=== PATIENT | female | born 1990 | race Two or more races ===

== ENCOUNTER 2019-05-22 11:40 | Emergency (ER) | payer MEDICAID ==
[~2019-05-22] VITALS: Ht 165.1 cm; Wt 74.8 kg
[2019-05-22] MEDS ORDERED: ONDANSETRON ODT 4 MG ONE (11:44)
--- NOTE | 2019-05-22 11:59 | NUR ---
Medicated per EMAR for active vomiting after 5 rights verified
[2019-05-22] MEDS ORDERED: ONDANSETRON ODT 4 MG PO ONE (12:00)
[2019-05-22] MEDS ORDERED: SODIUM CHLORIDE FLUSH 10ML SYR IVF ONE (13:00)
[2019-05-22] MEDS ORDERED: FAMOTIDINE 20 MG/2 ML IVPush ONE (13:00)
[2019-05-22] MEDS ORDERED: SODIUM CHLORIDE 0.9% 1,000ML IVBOLUS ONE ×2 (13:00→14:30)
[2019-05-22] MEDS ORDERED: ONDANSETRON 2MG/ML, 2ML IVPush ONE (13:00)
[2019-05-22] MEDS ORDERED: ONDANSETRON 2MG/ML, 2ML ONE (13:08)
[2019-05-22] MEDS ORDERED: FAMOTIDINE 20 MG/2 ML ONE (13:09)
[2019-05-22 13:13] LABS: BASOPHILS # (AUTO) 0.03 x10^3/uL (0-0.1); BASOPHILS % (AUTO) 0 % (0-1); EOSINOPHILS # (AUTO) 0.15 x10^3/uL (0-0.4); EOSINOPHILS % (AUTO) 2 % (1-7); LYMPHOCYTES # (AUTO) 1.67 x10^3/uL (1-3.4); LYMPHOCYTES % (AUTO) 18 % (22-44); MD NO; MEAN CORPUSCULAR HEMOGLOBIN 28.5 pg (27.0-34.8); MEAN CORPUSCULAR HGB CONC 33.3 g/dL (32.4-35.8); MEAN CORPUSCULAR VOLUME 85.7 fL (80-100); MEAN PLATELET VOLUME 7.6 fL (7.4-10.4); MONOCYTES # (AUTO) 0.35 x10^3/uL (0.2-0.8); MONOCYTES % (AUTO) 4 % (2-9); NEUTROPHILS # (AUTO) 7.17 x10^3/uL (1.8-6.8); NEUTROPHILS % (AUTO) 77 % (42-75); PLATELET COUNT 310 x10^3/uL (130-400); RED BLOOD COUNT 5.09 x10^6/uL (3.82-5.3); RED CELL DISTRIBUTION WIDTH 13.4 % (9.6-15.2)
[2019-05-22 13:23] LABS: ALANINE AMINOTRANSFERASE 29 U/L (12-78); ALBUMIN 3.8 g/dL (3.4-5.0); ANION GAP 9 mmol/L (5-15); CALCIUM 9.3 mg/dL (8.5-10.1); CHLORIDE 105 mmol/L (98-107); CREATININE 0.61 mg/dL (0.55-1.02)
[2019-05-22 13:40] LABS: ALKALINE PHOSPHATASE 88 U/L (45-117); BILIRUBIN,TOTAL 0.6 mg/dL (0.2-1.0); TOTAL PROTEIN 8.3 g/dL (6.4-8.2)
--- NOTE | 2019-05-22 15:27 | NUR ---
RE-EVAL. PT TOLERATING PO. ULTRASOUND ORDER ADDED.
--- NOTE | 2019-05-22 15:59 | NUR ---
TOLERATED PO CHALLENGE. AWAITING ULTRASOUND
--- NOTE | 2019-05-22 16:01 | NUR ---
OFF FLOOR TO ULTRASOUND
[2019-05-22 16:27] VITALS: BP 110/49
== END 2019-05-22 16:30 | disposition home or self-care (01) ==
LOC: ED 12:03
DX: O21.1 Hyperemesis gravidarum with metabolic disturbance (principal); Z3A.08 8 weeks gestation of pregnancy
CPT/HCPCS: 36415; 76801; 80053; 84702; 85025; 96361; 96374; 96375; 99284; J2405; J3490; J7030; Q0162

== ENCOUNTER 2019-06-10 18:02 | Inpatient (IN) | payer MEDICAID ==
[~2019-06-10] VITALS: Ht 152.4 cm; Wt 73.0 kg
[2019-06-10] MEDS ORDERED: DOCU-144 PO (18:23)
[2019-06-10] MEDS ORDERED: ONDA4TAB7 PO (18:23)
--- NOTE | 2019-06-10 18:26 | NUR ---
pt wheeled back to room, changed into gown, pt skin in WNL, warm and dry, FCS no SOB, RESP WNL, NAD, significant other at BS, call light within reach, lab at , WCTM.
[2019-06-10] MEDS ORDERED: SODIUM CHLORIDE FLUSH 10ML SYR IVF ONE (18:30)
[2019-06-10] MEDS ORDERED: DIPHENHYDRAMINE 50 MG/ML, 1ML IVPush ONE (18:30)
[2019-06-10] MEDS ORDERED: SODIUM CHLORIDE 0.9% 1,000ML IVBOLUS ONE (18:30)
[2019-06-10] MEDS ORDERED: DIPHENHYDRAMINE 50 MG/ML, 1ML ONE (18:50)
[2019-06-10 18:55] LABS: BASOPHILS # (AUTO) 0.02 x10^3/uL (0-0.1); BASOPHILS % (AUTO) 0 % (0-1); EOSINOPHILS # (AUTO) 0.14 x10^3/uL (0-0.4); EOSINOPHILS % (AUTO) 2 % (1-7); LYMPHOCYTES # (AUTO) 1.88 x10^3/uL (1-3.4); LYMPHOCYTES % (AUTO) 21 % (22-44); MD NO; MEAN CORPUSCULAR HEMOGLOBIN 28.8 pg (27.0-34.8); MEAN CORPUSCULAR HGB CONC 33.6 g/dL (32.4-35.8); MEAN CORPUSCULAR VOLUME 85.5 fL (80-100); MEAN PLATELET VOLUME 8.3 fL (7.4-10.4); MONOCYTES # (AUTO) 0.41 x10^3/uL (0.2-0.8); MONOCYTES % (AUTO) 5 % (2-9); NEUTROPHILS # (AUTO) 6.44 x10^3/uL (1.8-6.8); NEUTROPHILS % (AUTO) 72 % (42-75); PLATELET COUNT 254 x10^3/uL (130-400); RED BLOOD COUNT 5.26 x10^6/uL (3.82-5.3); RED CELL DISTRIBUTION WIDTH 13.3 % (9.6-15.2)
[2019-06-10 19:00] LABS: ALANINE AMINOTRANSFERASE 34 U/L (12-78); ALBUMIN 3.7 g/dL (3.4-5.0); ANION GAP 10 mmol/L (5-15); CALCIUM 9.1 mg/dL (8.5-10.1); CHLORIDE 100 mmol/L (98-107); CREATININE 0.66 mg/dL (0.55-1.02)
--- NOTE | 2019-06-10 19:00 | NUR ---
report given to Tiffanie ESTRADA, pt care transferred at this time.
[2019-06-10 19:02] LABS: ALKALINE PHOSPHATASE 85 U/L (45-117); BILIRUBIN,TOTAL 0.7 mg/dL (0.2-1.0); TOTAL PROTEIN 8.4 g/dL (6.4-8.2)
--- NOTE | 2019-06-10 19:24 | NUR ---
Report received from NATALIE Govea. This RN to assume care. Patient actively vomiting. IV established, meds admin per apr.
[2019-06-10] MEDS ORDERED: FAMOTIDINE 20 MG/2 ML ONE (19:28)
[2019-06-10] MEDS ORDERED: MAALOX/HYOSCYAMINE/LIDOCAINE 45 ML BTL ONE (19:28)
[2019-06-10] MEDS ORDERED: POTASSIUM CHLORIDE 20 MEQ TAB.ER.PRT PO ONE (20:30)
--- NOTE | 2019-06-10 20:38 | NUR ---
Patient completed PO challenge. Able to keep it down; still slightly nauseous.
[2019-06-10] MEDS ORDERED: PROMETHAZINE 25 MG/ML, 1ML IM ONE ×2 (22:30)
[2019-06-10] MEDS ORDERED: ACETAMINOPHEN 325 MG TABLET PO PRN (22:30)
[2019-06-10] MEDS ORDERED: BISACODYL 10 MG SUPP PR PRN (22:30)
[2019-06-10] MEDS ORDERED: POLYETHYLENE GLYCOL 17 GM PACKET PO PRN (22:30)
[2019-06-10] MEDS: SODIUM CHLORIDE 0.9% 1,000 ML IV SCH (22:30)
[2019-06-10] MEDS ORDERED: POTASSIUM CHLORIDE 20 MEQ TAB.ER.PRT ONE (22:37)
[2019-06-10] MEDS ORDERED: PROMETHAZINE 25 MG/ML, 1ML ONE (22:37)
--- NOTE | 2019-06-10 23:04 | NUR ---
Report given to NATALIE Chapa. Patient to be transferred to room 343.
[2019-06-10 23:20] VITALS: BP 106/74
[2019-06-10] MEDS: PYRIDOXINE 25MG TABLET PO SCH (23:40)
[2019-06-11 00:03] LABS: CULTURE INDICATED? YES; MICROSCOPIC INDICATED
[2019-06-11 01:02] VITALS: BP 92/63
[2019-06-11 05:06] LABS: BASOPHILS # (AUTO) 0.03 x10^3/uL (0-0.1); BASOPHILS % (AUTO) 1 % (0-1); EOSINOPHILS % (AUTO) 3 % (1-7); LYMPHOCYTES # (AUTO) 1.92 x10^3/uL (1-3.4); LYMPHOCYTES % (AUTO) 28 % (22-44); MD NO; MEAN CORPUSCULAR HEMOGLOBIN 28.5 pg (27.0-34.8); MEAN CORPUSCULAR HGB CONC 33.4 g/dL (32.4-35.8); MEAN CORPUSCULAR VOLUME 85.3 fL (80-100); MONOCYTES # (AUTO) 0.39 x10^3/uL (0.2-0.8); MONOCYTES % (AUTO) 6 % (2-9); NEUTROPHILS # (AUTO) 4.39 x10^3/uL (1.8-6.8); NEUTROPHILS % (AUTO) 63 % (42-75); PLATELET COUNT 215 x10^3/uL (130-400); RED BLOOD COUNT 4.57 x10^6/uL (3.82-5.3); RED CELL DISTRIBUTION WIDTH 13.1 % (9.6-15.2)
[2019-06-11 05:12] LABS: ANION GAP 8 mmol/L (5-15); CALCIUM 8.2 mg/dL (8.5-10.1); CHLORIDE 107 mmol/L (98-107)
[2019-06-11 05:23] LABS: CREATININE 0.44 mg/dL (0.55-1.02)
[2019-06-11 07:59] VITALS: BP 103/68
[2019-06-11] MEDS: SODIUM CHLORIDE 0.9% 1,000 ML IV SCH (09:37)
[2019-06-11] MEDS: PYRIDOXINE 25MG TABLET PO SCH ×3 (09:41→20:33)
[2019-06-11] MEDS: POTASSIUM CHLORIDE 20 MEQ TAB.ER.PRT PO SCH ×2 (09:41→16:08)
[2019-06-11] MEDS: SENNA/DOCUSATE TABLET PO SCH (09:41)
[2019-06-11] MEDS: PROMETHAZINE 25 MG/ML, 1ML IM PRN ×2 (10:47→16:53)
[2019-06-11] MEDS: ONDANSETRON 2MG/ML, 2ML IVPush PRN ×2 (13:44→20:33)
[2019-06-11 14:11] VITALS: BP 101/58
[2019-06-11] MEDS: D5%-0.45NACL+KCL 20MEQ 1,000 ML IV SCH ×2 (16:08→22:15)
[2019-06-11] MEDS: THIAMINE 100 MG in SODIUM CHLORIDE 0.9% 50 ML IV SCH (16:08)
[2019-06-11 19:09] VITALS: BP 98/63
[2019-06-12 00:48] VITALS: BP 92/57
[2019-06-12] MEDS: D5%-0.45NACL+KCL 20MEQ 1,000 ML IV SCH (04:44)
[2019-06-12 05:45] LABS: ALBUMIN 2.5 g/dL (3.4-5.0); ANION GAP 7 mmol/L (5-15); CALCIUM 7.8 mg/dL (8.5-10.1); CHLORIDE 111 mmol/L (98-107)
[2019-06-12 05:49] LABS: ALANINE AMINOTRANSFERASE 25 U/L (12-78); ALKALINE PHOSPHATASE 60 U/L (45-117); BILIRUBIN,TOTAL 0.7 mg/dL (0.2-1.0); TOTAL PROTEIN 5.9 g/dL (6.4-8.2)
[2019-06-12 06:09] LABS: BASOPHILS # (AUTO) 0.03 x10^3/uL (0-0.1); BASOPHILS % (AUTO) 1 % (0-1); EOSINOPHILS # (AUTO) 0.18 x10^3/uL (0-0.4); EOSINOPHILS % (AUTO) 4 % (1-7); LYMPHOCYTES # (AUTO) 1.48 x10^3/uL (1-3.4); LYMPHOCYTES % (AUTO) 33 % (22-44); MD NO; MEAN CORPUSCULAR HEMOGLOBIN 28.7 pg (27.0-34.8); MEAN CORPUSCULAR HGB CONC 33.4 g/dL (32.4-35.8); MEAN CORPUSCULAR VOLUME 85.9 fL (80-100); MONOCYTES # (AUTO) 0.29 x10^3/uL (0.2-0.8); MONOCYTES % (AUTO) 7 % (2-9); NEUTROPHILS # (AUTO) 2.45 x10^3/uL (1.8-6.8); NEUTROPHILS % (AUTO) 55 % (42-75); PLATELET COUNT 196 x10^3/uL (130-400); RED CELL DISTRIBUTION WIDTH 13.3 % (9.6-15.2)
[2019-06-12 07:14] VITALS: BP 91/58
[2019-06-12 07:34] LABS: FREE T4 (FREE THYROXINE) 1.42 ng/dL (0.76-1.46)
[2019-06-12] MEDS: SENNA/DOCUSATE TABLET PO SCH (07:52)
[2019-06-12] MEDS: POTASSIUM CHLORIDE 20 MEQ TAB.ER.PRT PO SCH (07:54)
[2019-06-12] MEDS: PYRIDOXINE 25MG TABLET PO SCH ×2 (07:54→16:32)
[2019-06-12] MEDS ORDERED: ONDANSETRON 4 MG TABLET PO PRN (09:30)
[2019-06-12] MEDS ORDERED: PROMETHAZINE 25MG TABLET PO PRN (09:30)
[2019-06-12 13:18] VITALS: BP 92/58
[2019-06-12] MEDS: THIAMINE 100 MG in SODIUM CHLORIDE 0.9% 50 ML IV SCH (15:52)
[2019-06-12] MEDS ORDERED: ONDA4TAB13 SL (16:00)
== END 2019-06-12 17:58 | disposition home or self-care (01) | DRG 833 ==
LOC: ED 20:58 → EDIP 22:23 → 3N 23:06
PROVIDERS: ATTEND Family Medicine
DX: O99.281 Endocrine, nutritional and metabolic diseases complicating pregnancy, first trimester (principal); O21.1 Hyperemesis gravidarum with metabolic disturbance; Z3A.21 21 weeks gestation of pregnancy; E86.0 Dehydration; Z91.013 Allergy to seafood; Z3A.10 10 weeks gestation of pregnancy
CPT/HCPCS: 36415; Q0169; 80048; 80053; 81001; 83605; 83690; 83735; 84100; 84439; 84443; 84481; 84702; 85025; 87086; 96360; 96372; 99285; G0378; J2405; J2550; J3411; Q0162; J1200; J3480; J7030

== ENCOUNTER 2019-06-24 15:01 | Emergency (ER) | payer MEDICAID ==
[~2019-06-24] VITALS: Ht 152.4 cm; Wt 61.8 kg
[~2019-06-24 15:01] MED LIST: DOCU-144 PO; ONDA4TAB13 SL; ONDA4TAB7 PO
[2019-06-24] MEDS ORDERED: SODIUM CHLORIDE FLUSH 10ML SYR IVF ONE (15:30)
[2019-06-24] MEDS ORDERED: ONDANSETRON 2MG/ML, 2ML IVPush ONE (15:30)
[2019-06-24] MEDS ORDERED: SODIUM CHLORIDE 0.9% 1,000ML IVBOLUS ONE (15:30)
[2019-06-24 15:51] LABS: BASOPHILS # (AUTO) 0.03 x10^3/uL (0-0.1); BASOPHILS % (AUTO) 0 % (0-1); EOSINOPHILS # (AUTO) 0.14 x10^3/uL (0-0.4); EOSINOPHILS % (AUTO) 2 % (1-7); LYMPHOCYTES # (AUTO) 1.63 x10^3/uL (1-3.4); LYMPHOCYTES % (AUTO) 21 % (22-44); MD NO; MEAN CORPUSCULAR HEMOGLOBIN 28.5 pg (27.0-34.8); MEAN CORPUSCULAR VOLUME 83.9 fL (80-100); MEAN PLATELET VOLUME 8.6 fL (7.4-10.4); MONOCYTES % (AUTO) 5 % (2-9); NEUTROPHILS # (AUTO) 5.46 x10^3/uL (1.8-6.8); NEUTROPHILS % (AUTO) 71 % (42-75); PLATELET COUNT 281 x10^3/uL (130-400); RED BLOOD COUNT 5.47 x10^6/uL (3.82-5.3); RED CELL DISTRIBUTION WIDTH 12.8 % (9.6-15.2)
[2019-06-24 15:59] LABS: ALBUMIN 3.7 g/dL (3.4-5.0); ANION GAP 8 mmol/L (5-15); CALCIUM 9.4 mg/dL (8.5-10.1); CHLORIDE 97 mmol/L (98-107)
[2019-06-24 16:02] LABS: ALANINE AMINOTRANSFERASE 34 U/L (12-78); ALKALINE PHOSPHATASE 87 U/L (45-117); BILIRUBIN,TOTAL 0.6 mg/dL (0.2-1.0); CREATININE 0.71 mg/dL (0.55-1.02); TOTAL PROTEIN 8.4 g/dL (6.4-8.2)
--- NOTE | 2019-06-24 18:15 | NUR ---
CLAMP FORKLIFT OPERATOR; PT TO ROOM FROM LOBBY VIA W/C
[2019-06-24] MEDS ORDERED: ONDANSETRON 2MG/ML, 2ML ONE (18:16)
--- NOTE | 2019-06-24 18:41 | NUR ---
THIS IS A 29 YO FEMALE COMING IN FOR N/V FOR THREE DAYS, PATIENT IS 11 WEEKS . SEEN PREVIOUSLY AND HOSPITALIZED FOR SAME RECENTLY, DISCHARGED LAST WEEK. [facility] AND REFERRED HERE FOR DEHYDRATION. SPOTTING INTERMITTENTLY, EPIGASTRIC PAIN/CRAMPING PRESENT. VSS IN ROOM, DENIES DIZZINESS OR LIGHTHEADED. PATIENT IS A , NO PROBLEMS WITH PREVIOUS DELIVERIES. PATIENT STATES "THIS HAPPENED WITH MY OTHER PREGNANCIES BUT IT GOT BETTER AFTER THE FIRST MEDICATION THEY GAVE AND IT WENT AWAY". SPO2 AND BP MONITORING IN PLACE. CALL LIGHT IN REACH. PIV PLACED, PATIENT MEDICATED PER EMAR, IVF RUNNING
--- NOTE | 2019-06-24 19:18 | NUR ---
PATIETN AMBULATORY WITH STEADY GAIT TO RESTROOM TO OBTAIN UA
--- NOTE | 2019-06-24 19:57 | NUR ---
UA COLLECTED AND SENT
[2019-06-24 20:15] LABS: MICROSCOPIC INDICATED
--- NOTE | 2019-06-24 20:46 | NUR ---
IVF DONE, UA CULTURE PENDING
[2019-06-24 21:35] VITALS: BP 114/78
[2019-06-24] MEDS ORDERED: NITROFURANTOIN (MACROBID) 100 MG CAPSULE ONE (21:37)
[2019-06-24] MEDS ORDERED: NITROFURANTOIN (MACROBID) 100 MG CAPSULE PO ONE (22:00)
--- NOTE | 2019-06-24 22:08 | NUR ---
Patient medicated per emar, tolerated well. Patient given discharge instructions and they have confirmed that they understand the instructions. Patient ambulatory with steady gait.
== END 2019-06-24 22:16 | disposition home or self-care (01) ==
LOC: ED 18:39
DX: O21.0 Mild hyperemesis gravidarum (principal); O23.11 Infections of bladder in pregnancy, first trimester; R00.0 Tachycardia, unspecified; M54.2 Cervicalgia; Z3A.12 12 weeks gestation of pregnancy
CPT/HCPCS: 36415; 80053; 81001; 85025; 87086; 96361; 96374; 99283; J2405; J7030

== ENCOUNTER 2019-09-22 12:25 | Outpatient (CLI) | payer MEDICAID ==
[~2019-09-22] VITALS: Ht 152.4 cm; Wt 77.3 kg
[2019-09-22 12:32] VITALS: BP 105/53
[2019-09-22 14:31] LABS: CLUE CELLS PRESENT (NONE SEEN); WET PREP WBCS MANY (FEW)
== END 2019-09-22 14:50 | disposition home or self-care (01) ==
LOC: LDOP 12:25
PROVIDERS: ATTEND Obstetrics & Gynecology
DX: O98.812 Other maternal infectious and parasitic diseases complicating pregnancy, second trimester (principal); Z3A.25 25 weeks gestation of pregnancy
CPT/HCPCS: 59025; 76815; 87210; 87491; 87591; 87808; 87661

== ENCOUNTER 2019-11-10 10:33 | Outpatient (CLI) | payer MEDICAID ==
[~2019-11-10] VITALS: Ht 152.4 cm; Wt 80.5 kg
[2019-11-10 10:52] VITALS: BP 110/64
[2019-11-10 11:09] LABS: MICROSCOPIC INDICATED
[2019-11-10 11:53] LABS: BASOPHILS # (AUTO) 0.03 x10^3/uL (0-0.1); BASOPHILS % (AUTO) 0 % (0-1); EOSINOPHILS # (AUTO) 0.16 x10^3/uL (0-0.4); EOSINOPHILS % (AUTO) 2 % (1-7); LYMPHOCYTES # (AUTO) 1.39 x10^3/uL (1-3.4); LYMPHOCYTES % (AUTO) 19 % (22-44); MD NO; MEAN CORPUSCULAR HGB CONC 32.9 g/dL (32.4-35.8); MEAN PLATELET VOLUME 7.6 fL (7.4-10.4); MONOCYTES % (AUTO) 4 % (2-9); NEUTROPHILS # (AUTO) 5.52 x10^3/uL (1.8-6.8); NEUTROPHILS % (AUTO) 75 % (42-75); PLATELET COUNT 280 x10^3/uL (130-400); RED BLOOD COUNT 4.39 x10^6/uL (3.82-5.3); RED CELL DISTRIBUTION WIDTH 13.9 % (9.6-15.2)
[2019-11-10] MEDS ORDERED: ACETAMINOPHEN 325 MG TABLET ONE (13:09)
[2019-11-10] MEDS ORDERED: ACETAMINOPHEN 325 MG TABLET PO PRN (13:30)
== END 2019-11-10 13:55 | disposition home or self-care (01) ==
LOC: LDOP 10:33
PROVIDERS: ATTEND Obstetrics & Gynecology
DX: O26.853 Spotting complicating pregnancy, third trimester (principal); Z3A.32 32 weeks gestation of pregnancy
CPT/HCPCS: 59025; 81001; 82962; 85025; 86592; 86762; 86850; 86900; 87086; 87340; 87806; G0475

== ENCOUNTER → 2019-12-10 | Outpatient (CLI) | payer MEDICAID | END | disposition home or self-care (01) | LOC: STAR 10:50 | PROVIDERS: ATTEND Obstetrics & Gynecology | DX: Z01.812 Encounter for preprocedural laboratory examination (principal); Z20.828 Contact with and (suspected) exposure to other viral communicable diseases | CPT/HCPCS: 36415; 87635 ==

== ENCOUNTER 2019-12-16 05:20 | Inpatient (IN) | payer MEDICAID ==
[~2019-12-16] VITALS: Ht 153.2 cm; Wt 72.0 kg
[2019-12-16 05:30] VITALS: BP 121/74
[2019-12-16] MEDS ORDERED: OXYTOCIN 30U/ 0.9% NaCL 500ML 500 ML IV PRN (05:30)
[2019-12-16] MEDS ORDERED: D5%-LACTATED RINGERS 1,000 ML IV SCH (05:30)
[2019-12-16] MEDS ORDERED: FENTANYL PF 100 MCG/2ML IVPush PRN (05:30)
[2019-12-16] MEDS ORDERED: EPHEDRINE 50 MG/ML, 1ML IVPush PRN ×2 (05:30→09:30)
[2019-12-16] MEDS ORDERED: FENTANYL/BUPIV./NS/PF 250 ML EPIDCONT SCH ×2 (05:30→09:30)
[2019-12-16] MEDS ORDERED: ONDANSETRON 2MG/ML, 2ML IVPush PRN (05:30)
[2019-12-16] MEDS ORDERED: MISOPROSTOL 25 MCG TABLET VG PRN (05:30)
[2019-12-16] MEDS ORDERED: LACTATED RINGERS 1,000 ML IVBOLUS PRN ×2 (05:30→09:30)
[2019-12-16] MEDS ORDERED: CALCIUM CARBONATE 500 MG TAB.CHEW PO PRN (05:30)
[2019-12-16] MEDS ORDERED: FENTANYL PF 100 MCG/2ML IV PRN (05:30)
[2019-12-16] MEDS ORDERED: OXYTOCIN 30U/ 0.9% NaCL 500ML 500 ML IV ONE (05:30)
[2019-12-16] MEDS ORDERED: LACTATED RINGERS 1,000 ML IV SCH ×2 (05:30→09:30)
[2019-12-16] MEDS ORDERED: TERBUTALINE 1 MG/ML, 1ML SQ PRN (05:30)
[2019-12-16] MEDS ORDERED: TERBUTALINE 1 MG/ML, 1ML IVPush PRN (05:30)
[2019-12-16] MEDS ORDERED: NEWBORN KIT ONE (06:08)
[2019-12-16] MEDS ORDERED: LIDOCAINE 1%, 20ML ONE (06:09)
[2019-12-16] MEDS ORDERED: MISOPROSTOL 200 MCG TABLET ONE ×2 (06:09→08:25)
[2019-12-16] MEDS ORDERED: OXYTOCIN 30U/ 0.9% NaCL 500ML 500 ML ONE ×2 (06:09→18:00)
[2019-12-16 06:12] LABS: BASOPHILS % (AUTO) 1 % (0-1); EOSINOPHILS % (AUTO) 3 % (1-7); LYMPHOCYTES % (AUTO) 24 % (22-44); MEAN CORPUSCULAR HEMOGLOBIN 24.9 pg (27.0-34.8); MEAN CORPUSCULAR HGB CONC 32.2 g/dL (32.4-35.8); MONOCYTES % (AUTO) 5 % (2-9); NEUTROPHILS % (AUTO) 67 % (42-75); PLATELET COUNT 264 x10^3/uL (130-400); RED BLOOD COUNT 4.58 x10^6/uL (3.82-5.3); RED CELL DISTRIBUTION WIDTH 15.1 % (9.6-15.2)
[2019-12-16 06:14] LABS: MD NO
[2019-12-16] MEDS ORDERED: PENICILLIN GK 5,000,000 UNITS in DEXTROSE 5% 100 ML IVPB ONE (06:30)
[2019-12-16] MEDS ORDERED: FENTANYL/BUPIV./NS/PF 250 ML EPIDCONT ONE (09:04)
[2019-12-16] MEDS ORDERED: BUPIVACAINE 0.25% ONE (09:04)
[2019-12-16] MEDS ORDERED: NALOXONE 0.4 MG/ML, 1ML IVPush PRN (09:30)
[2019-12-16] MEDS: PENICILLIN GK 2,500,000 UNITS in DEXTROSE 5% 100 ML IVPB SCH ×4 (10:32→18:30)
[2019-12-16] MEDS: LACTATED RINGERS 1,000 ML IV SCH ×3 (12:40→21:30)
[2019-12-16] MEDS ORDERED: OXYTOCIN 10 UNITS/ML, 1ML IM PRN (18:00)
[2019-12-16] MEDS ORDERED: DOCUSATE 100 MG CAPSULE PO PRN (18:00)
[2019-12-16] MEDS ORDERED: ONDANSETRON 2MG/ML, 2ML IV PRN (18:00)
[2019-12-16] MEDS ORDERED: ACETAMINOPHEN 325 MG TABLET PO PRN (18:00)
[2019-12-16] MEDS ORDERED: CARBOPROST TROMETHAMINE 250 MCG/ML, 1ML IM PRN (18:00)
[2019-12-16] MEDS ORDERED: METHYLERGONOVINE 0.2 MG/ML IM PRN (18:00)
[2019-12-16] MEDS ORDERED: SIMETHICONE 80 MG CHEW TAB PO PRN (18:00)
[2019-12-16] MEDS ORDERED: HYDROcodone/APAP 5/325 TABLET PO PRN (18:00)
[2019-12-16] MEDS ORDERED: MISOPROSTOL 200 MCG TABLET PR PRN (18:00)
[2019-12-16] MEDS: OXYTOCIN 30U/ 0.9% NaCL 500ML 500 ML IV SCH (18:32)
[2019-12-16 20:24] VITALS: BP 118/74
[2019-12-16] MEDS: IBUPROFEN 600 MG TABLET PO PRN (22:56)
[2019-12-17 00:53] VITALS: BP 119/71
[2019-12-17 02:27] LABS: BASOPHILS % (AUTO) 0 % (0-1); EOSINOPHILS % (AUTO) 1 % (1-7); LYMPHOCYTES % (AUTO) 18 % (22-44); MEAN CORPUSCULAR HEMOGLOBIN 24.7 pg (27.0-34.8); MEAN CORPUSCULAR HGB CONC 32.4 g/dL (32.4-35.8); MEAN PLATELET VOLUME 7.9 fL (7.4-10.4); MONOCYTES % (AUTO) 5 % (2-9); NEUTROPHILS % (AUTO) 75 % (42-75); PLATELET COUNT 236 x10^3/uL (130-400); RED BLOOD COUNT 4.42 x10^6/uL (3.82-5.3); RED CELL DISTRIBUTION WIDTH 15.1 % (9.6-15.2)
[2019-12-17 02:30] LABS: MD NO
[2019-12-17] MEDS: LACTATED RINGERS 1,000 ML IV SCH (03:39)
[2019-12-17] MEDS: OXYTOCIN 30U/ 0.9% NaCL 500ML 500 ML IV SCH (03:39)
[2019-12-17 03:53] VITALS: BP 114/74
[2019-12-17] MEDS: HYDROcodone/APAP 5/325 TABLET PO PRN ×4 (04:56→18:01)
[2019-12-17 07:10] VITALS: BP 104/69
[2019-12-17] MEDS: IBUPROFEN 600 MG TABLET PO PRN ×2 (07:20→14:11)
[2019-12-17] MEDS ORDERED: PRENATAL VIT/IRON/FA 1 EACH TABLET PO SCH (09:00)
[2019-12-17 11:35] VITALS: BP 119/76
[2019-12-17] MEDS ORDERED: ACETAMINOPHEN 325 MG TABLET PO PRN ×2 (12:30)
[2019-12-17] MEDS ORDERED: SIMETHICONE 80 MG CHEW TAB PO PRN (12:30)
[2019-12-17] MEDS ORDERED: HYDROcodone/APAP 5/325 TABLET PO PRN (12:30)
[2019-12-17] MEDS ORDERED: DOCUSATE 100 MG CAPSULE PO PRN (12:30)
[2019-12-17 15:40] VITALS: BP 113/74
[2019-12-17] MEDS ORDERED: FLU VACC QS2020-21(6MOS UP)/PF 60MCG/0.5 ML SYR IM-VACC ONE (18:00)
[2019-12-17 20:00] VITALS: BP 122/81
[2019-12-18] MEDS: IBUPROFEN 600 MG TABLET PO PRN ×2 (01:53→10:03)
[2019-12-18 07:10] VITALS: BP 125/76
[2019-12-18] MEDS ORDERED: PRENATAL VIT/IRON/FA 1 EACH TABLET PO SCH (09:00)
[2019-12-18] MEDS ORDERED: DIPH,PERTUSS(ACELL),TET VAC/PF NC IM-VACC ONE ×2 (10:00)
[2019-12-18] MEDS: HYDROcodone/APAP 5/325 TABLET PO PRN (10:04)
[2019-12-18] MEDS ORDERED: HYDR-3240 PO (10:07)
[2019-12-18] MEDS ORDERED: IBUP-1222 PO (10:07)
[2019-12-18] MEDS ORDERED: SENN-92 PO (10:07)
== END 2019-12-18 11:05 | disposition home or self-care (01) | DRG 807 ==
LOC: LDIP 05:20 → 2NW 22:27
PROVIDERS: ADMIT Obstetrics & Gynecology; ATTEND Obstetrics & Gynecology
PROC: 10E0XZZ Delivery of Products of Conception, External Approach (ICD-10-PCS; principal; 2019-12-16)
PROC: 0HQ9XZZ Repair Perineum Skin, External Approach (ICD-10-PCS; 2019-12-16)
PROC: 3E0R3BZ Introduction of Anesthetic Agent into Spinal Canal, Percutaneous Approach (ICD-10-PCS; 2019-12-16)
PROC: 00HU33Z Insertion of Infusion Device into Spinal Canal, Percutaneous Approach (ICD-10-PCS; 2019-12-16)
PROC: 10H07YZ Insertion of Other Device into Products of Conception, Via Natural or Artificial Opening (ICD-10-PCS; 2019-12-16)
PROC: 10907ZC Drainage of Amniotic Fluid, Therapeutic from Products of Conception, Via Natural or Artificial Opening (ICD-10-PCS; 2019-12-16)
PROC: 3E0P7VZ Introduction of Hormone into Female Reproductive, Via Natural or Artificial Opening (ICD-10-PCS; 2019-12-16)
PROC: 3E033VJ Introduction of Other Hormone into Peripheral Vein, Percutaneous Approach (ICD-10-PCS; 2019-12-16)
DX: O24.429 Gestational diabetes mellitus in childbirth, unspecified control (principal); Z37.0 Single live birth; Z3A.37 37 weeks gestation of pregnancy; O99.824 Streptococcus B carrier state complicating childbirth; O70.0 First degree perineal laceration during delivery
CPT/HCPCS: 36415; 82962; 85025; 86592; 86850; 86900; 90686; 90715; G0378; J2540; J2590; J3010; J7120

== ENCOUNTER 2020-03-28 10:13 | Emergency (ER) | payer MEDICAID ==
[~2020-03-28] VITALS: Ht 152.4 cm; Wt 75.7 kg
[~2020-03-28 10:13] MED LIST changes: +HYDR-1067 PO; +IBUP-1222 PO; +SENN-92 PO
--- NOTE | 2020-03-28 10:45 | NUR ---
RUQ PAIN WITH N/V. PT STATES PAIN WORSENS WHEN SHE EATS.
--- NOTE | 2020-03-28 10:50 | NUR ---
ULTRASOUND AT BEDSIDE
[2020-03-28 10:53] LABS: MICROSCOPIC AUTO
[2020-03-28] MEDS ORDERED: ONDANSETRON ODT 4 MG PO ONE (11:00)
[2020-03-28] MEDS ORDERED: MAALOX/HYOSCYAMINE/LIDOCAINE 45 ML BTL PO ONE (11:00)
[2020-03-28] MEDS ORDERED: ONDANSETRON ODT 4 MG ONE (11:02)
[2020-03-28 11:28] LABS: ALANINE AMINOTRANSFERASE 45 U/L (12-78); ALBUMIN 3.6 g/dL (3.4-5.0); ANION GAP 6 mmol/L (5-15); CALCIUM 8.6 mg/dL (8.5-10.1); CHLORIDE 112 mmol/L (98-107); CREATININE 0.64 mg/dL (0.55-1.02)
[2020-03-28 11:32] LABS: ALKALINE PHOSPHATASE 113 U/L (45-117); BILIRUBIN,TOTAL 0.4 mg/dL (0.2-1.0); TOTAL PROTEIN 7.4 g/dL (6.4-8.2)
[2020-03-28 11:49] LABS: BASOPHILS % (AUTO) 1 % (0-1); EOSINOPHILS % (AUTO) 6 % (1-7); LYMPHOCYTES % (AUTO) 37 % (22-44); MEAN CORPUSCULAR HGB CONC 33.5 g/dL (32.4-35.8); MEAN PLATELET VOLUME 8.1 fL (7.4-10.4); MONOCYTES % (AUTO) 6 % (2-9); NEUTROPHILS % (AUTO) 50 % (42-75); PLATELET COUNT 299 x10^3/uL (130-400); RED BLOOD COUNT 4.95 x10^6/uL (3.82-5.3)
[2020-03-28 11:51] LABS: MD NO
[2020-03-28] MEDS ORDERED: MAALOX/HYOSCYAMINE/LIDOCAINE 45 ML BTL ONE (11:53)
--- NOTE | 2020-03-28 11:56 | NUR ---
ULTRASOUND REMAINS AT BEDSIDE
--- NOTE | 2020-03-28 12:35 | NUR ---
PT STATES GI COCKTAIL IMPROVED HER PAIN AND NO NAUSEA AT THIS TIME. AWAITING DISPO
[2020-03-28 13:42] VITALS: BP 125/70
--- NOTE | 2020-03-28 13:42 | NUR ---
PT RESTING IN [facility]. AWAITING CT. NAD. VSS
== END 2020-03-28 14:33 | disposition home or self-care (01) ==
LOC: ED 10:28
DX: N93.8 Other specified abnormal uterine and vaginal bleeding (principal); R10.13 Epigastric pain; R10.11 Right upper quadrant pain; R10.12 Left upper quadrant pain; R11.2 Nausea with vomiting, unspecified; R19.7 Diarrhea, unspecified; R06.02 Shortness of breath
CPT/HCPCS: 36415; 74176; 76700; 80053; 81001; 83690; 84703; 85025; 87086; 99285; Q0162

== ENCOUNTER 2020-04-19 23:56 | Emergency (ER) | payer MEDICAID ==
[~2020-04-19] VITALS: Ht 152.4 cm; Wt 74.6 kg
[2020-04-20] MEDS ORDERED: ONDANSETRON 2MG/ML, 2ML ONE (00:16)
[2020-04-20] MEDS ORDERED: MORPHINE SULFATE 4 MG/ML, 1ML ONE (00:17)
[2020-04-20] MEDS ORDERED: SODIUM CHLORIDE FLUSH 10ML SYR IVF ONE (00:30)
[2020-04-20] MEDS ORDERED: ONDANSETRON 2MG/ML, 2ML IVPush ONE (00:30)
[2020-04-20] MEDS ORDERED: MORPHINE SULFATE 4 MG/ML, 1ML IVPush PRN (00:30)
--- NOTE | 2020-04-20 00:38 | NUR ---
PATIENT RESTING IN BED AND LOOKS UNCOMFORTABLE. DR. FONSECA TO BEDSIDE AND NOTIFIED PATIENT OF PLAN OF CARE AT THIS TIME. IV PLACED, LABS DRAWN, MEDS ADMIN AND WARM BLANKET PROVIDED. S/O AT BEDSIDE. VS REMAIN STABLE ON RA. CALL HUDSON IN REACH. LIGHTS DIMMED PER PATIENT PREFERENCE
[2020-04-20 00:39] LABS: ALANINE AMINOTRANSFERASE 32 U/L (12-78); ALBUMIN 3.8 g/dL (3.4-5.0); ANION GAP 8 mmol/L (5-15); CALCIUM 8.4 mg/dL (8.5-10.1); CHLORIDE 109 mmol/L (98-107); CREATININE 0.61 mg/dL (0.55-1.02)
[2020-04-20 00:44] LABS: ALKALINE PHOSPHATASE 117 U/L (45-117); BILIRUBIN,TOTAL 0.3 mg/dL (0.2-1.0); TOTAL PROTEIN 7.7 g/dL (6.4-8.2)
[2020-04-20 00:54] LABS: BASOPHILS % (AUTO) 0 % (0-1); EOSINOPHILS % (AUTO) 3 % (1-7); LYMPHOCYTES % (AUTO) 27 % (22-44); MEAN CORPUSCULAR HEMOGLOBIN 26.9 pg (27.0-34.8); MEAN CORPUSCULAR HGB CONC 32.9 g/dL (32.4-35.8); MEAN PLATELET VOLUME 8.1 fL (7.4-10.4); MONOCYTES % (AUTO) 4 % (2-9); NEUTROPHILS % (AUTO) 66 % (42-75); PLATELET COUNT 271 x10^3/uL (130-400); RED BLOOD COUNT 5.04 x10^6/uL (3.82-5.3); RED CELL DISTRIBUTION WIDTH 14.2 % (9.6-15.2)
[2020-04-20 00:57] LABS: MD NO
[2020-04-20 01:55] VITALS: BP 107/61
--- NOTE | 2020-04-20 01:55 | NUR ---
REPORT FROM KELIN ESTRADA, PT CARE ASSUMED AT THIS TIME.
--- NOTE | 2020-04-20 01:56 | NUR ---
Patient given discharge instructions and they have confirmed that they understand the instructions. Patient ambulatory with steady gait. NAD, DENIES ADDITIONAL QUESTIONS OR NEEDS AT THIS TIME, NO PERSONAL BELONGINGS LEFT IN ROOM AFTER DC. SO DRIVING PT HOME D/T MEDICATIONS.
--- NOTE | 2020-04-20 01:56 | NUR ---
REPORT GIVEN TO DORA ESTRADA. PATIENT DENIES PAIN AT THIS TIME. ALL VS STABLE
== END 2020-04-20 02:09 | disposition home or self-care (01) ==
LOC: ED 04-20 02:02
DX: R10.13 Epigastric pain (principal); R10.11 Right upper quadrant pain; R11.0 Nausea; K76.0 Fatty (change of) liver, not elsewhere classified
CPT/HCPCS: 36415; 76700; 80053; 83690; 84703; 85025; 93005; 96374; 96375; 99285; J2270; J2405

== ENCOUNTER 2020-08-10 22:54 | Emergency (ER) | payer MEDICAID ==
[~2020-08-10] VITALS: Ht 152.4 cm; Wt 76.9 kg
[~2020-08-10 22:54] MED LIST changes: -HYDR-1067 PO; +HYDR-2214 PO
[2020-08-10 22:57] VITALS: BP 121/78
--- NOTE | 2020-08-10 23:19 | NUR ---
PT CAME INTO THE ED TONIGHT DUE TO LEFT UPPER QUADRANT PAIN [id number] THAT RADIATES TO THE BACK, REPORTS IT SHARP, +NAUSEA, DENIES V/D. PT REPORTS SHE IS ALSO ITCHY IN THAT AREA, HOWEVER NO RASH PRESENT AT THIS TIME. PT DENIES SYMPTOMS. PT PLACED ON SPO2/BP MONITORING, NAD, BED IN LOWEST, RAILS ENGAGED, CALL LIGHT ON LAP, WCTM. KARLA LEIVA AT FOR EVAL AND POC. PT MEDICATED PER APR.
[2020-08-10] MEDS ORDERED: MAALOX/HYOSCYAMINE/LIDOCAINE 45 ML BTL ONE (23:23)
[2020-08-10] MEDS ORDERED: MAALOX/HYOSCYAMINE/LIDOCAINE 45 ML BTL PO ONE (23:30)
[2020-08-10 23:38] LABS: BASOPHILS % (AUTO) 1 % (0-1); EOSINOPHILS % (AUTO) 8 % (1-7); LYMPHOCYTES % (AUTO) 38 % (22-44); MEAN CORPUSCULAR HEMOGLOBIN 27.2 pg (27.0-34.8); MEAN CORPUSCULAR HGB CONC 33.3 g/dL (32.4-35.8); MEAN PLATELET VOLUME 7.8 fL (7.4-10.4); MONOCYTES % (AUTO) 6 % (2-9); NEUTROPHILS % (AUTO) 46 % (42-75); PLATELET COUNT 296 x10^3/uL (130-400); RED BLOOD COUNT 5.21 x10^6/uL (3.82-5.3); RED CELL DISTRIBUTION WIDTH 14.8 % (9.6-15.2)
[2020-08-10 23:48] LABS: ALANINE AMINOTRANSFERASE 30 U/L (12-78); ALBUMIN 3.7 g/dL (3.4-5.0); ANION GAP 7 mmol/L (5-15); CALCIUM 8.6 mg/dL (8.5-10.1); CHLORIDE 106 mmol/L (98-107)
[2020-08-10 23:50] LABS: ALKALINE PHOSPHATASE 121 U/L (45-117); BILIRUBIN,TOTAL 0.3 mg/dL (0.2-1.0); TOTAL PROTEIN 7.8 g/dL (6.4-8.2)
[2020-08-11 00:21] LABS: MICROSCOPIC INDICATED
--- NOTE | 2020-08-11 00:22 | NUR ---
Patient is resting comfortably in bed. Bed in lowest, rails engaged, call light on lap. NAD, denies additional questions or needs, to be admitted. Vital Signs within normal limits. WCTM.
--- NOTE | 2020-08-11 01:14 | NUR ---
F/U AND D/C INSTRUCTIONS GIVEN WITH PRESCRIPTIONS AND PT V/U. PT AMBULATED TO DISCHARGE DESK.
== END 2020-08-11 01:16 | disposition home or self-care (01) ==
LOC: ED 22:57
DX: K80.20 Calculus of gallbladder without cholecystitis without obstruction (principal); N30.00 Acute cystitis without hematuria
CPT/HCPCS: 36415; 76700; 80053; 81001; 83690; 85025; 87086; 99284

== ENCOUNTER 2020-08-29 18:55 | Day surgery (SDC) | payer MEDICAID ==
[~2020-08-29] VITALS: Ht 152.4 cm; Wt 74.4 kg
[2020-08-29] MEDS ORDERED: HYDROmorphone 1 MG/ML, 1ML INJ IV ONE (19:30)
[2020-08-29] MEDS ORDERED: ONDANSETRON 2MG/ML, 2ML IVPush ONE (19:30)
[2020-08-29] MEDS ORDERED: SODIUM CHLORIDE FLUSH 10ML SYR IVF ONE (19:30)
[2020-08-29] MEDS ORDERED: SODIUM CHLORIDE 0.9% 1,000ML IVBOLUS ONE (19:30)
[2020-08-29] MEDS ORDERED: HYDROmorphone 1 MG/ML, 1ML INJ ONE (19:34)
[2020-08-29] MEDS ORDERED: ONDANSETRON 2MG/ML, 2ML ONE (19:35)
[2020-08-29 20:02] LABS: BASOPHILS % (AUTO) 0 % (0-1); EOSINOPHILS % (AUTO) 2 % (1-7); LYMPHOCYTES % (AUTO) 12 % (22-44); MEAN CORPUSCULAR HEMOGLOBIN 27.4 pg (27.0-34.8); MEAN CORPUSCULAR HGB CONC 33.3 g/dL (32.4-35.8); MEAN PLATELET VOLUME 7.8 fL (7.4-10.4); MONOCYTES % (AUTO) 4 % (2-9); NEUTROPHILS % (AUTO) 82 % (42-75); PLATELET COUNT 279 x10^3/uL (130-400); RED BLOOD COUNT 4.99 x10^6/uL (3.82-5.3); RED CELL DISTRIBUTION WIDTH 14.7 % (9.6-15.2)
[2020-08-29 20:08] LABS: ALANINE AMINOTRANSFERASE 29 U/L (12-78); ALBUMIN 3.6 g/dL (3.4-5.0); ANION GAP 6 mmol/L (5-15); CALCIUM 8.5 mg/dL (8.5-10.1); CHLORIDE 109 mmol/L (98-107)
--- NOTE | 2020-08-29 20:11 | NUR ---
PAIN IMPROVED AFTER DILAUDID. LABS PENDING. NEED UA. IVF INFUSING. CALL HUDSON.
[2020-08-29 20:12] LABS: ALKALINE PHOSPHATASE 114 U/L (45-117); BILIRUBIN,TOTAL 0.5 mg/dL (0.2-1.0); TOTAL PROTEIN 7.7 g/dL (6.4-8.2)
--- NOTE | 2020-08-29 20:36 | NUR ---
UA WALKED TO LAB.
--- NOTE | 2020-08-29 20:52 | NUR ---
REPORT TO TIM ESTRADA.
--- NOTE | 2020-08-29 20:52 | NUR ---
RECEIVED REPORT FROM NATALIE BILL TO ASSUME CARE OF PT. AT THIS TIME.
[2020-08-29 21:25] LABS: MICROSCOPIC INDICATED
--- NOTE | 2020-08-29 21:56 | NUR ---
DR. ACOSTA IN TO DISCUSS POC WITH PT.
[2020-08-29] MEDS ORDERED: CEFOTETAN PMX 1GM/50ML 50 ML IVPB ONE (22:30)
[2020-08-29] MEDS ORDERED: ONDANSETRON 2MG/ML, 2ML IVPush PRN (22:30)
[2020-08-29] MEDS ORDERED: HYDROmorphone 1 MG/ML, 1ML INJ IVPush PRN (22:30)
[2020-08-29] MEDS ORDERED: SODIUM CHLORIDE FLUSH 10ML SYR IVF PRN (22:30)
[2020-08-29] MEDS ORDERED: SODIUM CHLORIDE 0.9% 1,000 ML IV ONE (22:30)
--- NOTE | 2020-08-29 22:30 | NUR ---
COVID SWAB COLLECTED AND WALKED TO LAB. PER DR. ACOSTA NO BLOOD CULTURES NEEDED PRIOR TO IV ABX. YELLOW SLIP SENT TO PHARMACY.
--- NOTE | 2020-08-29 22:37 | NUR ---
FIRST ATTEMPT TO CALL REPORT TO FLOOR.
--- NOTE | 2020-08-29 22:48 | NUR ---
REPORT TO NATALIE PLUMMER. FLOOR READY FOR PT. TRANSPORT. THIS RN IN TO HAND IVF AND IV NO LONGER IN HAND. TIP INTACT. NEW IV TO BE PLACED AND IV ABX TO BE INITIATED PRIOR TO TRANSPORT TO FLOOR.
--- NOTE | 2020-08-29 22:57 | NUR ---
CALLED PHARMACY; MED IS BEING MADE AT THIS TIME.
[2020-08-30] VITALS: BP 108/72
[2020-08-30] MEDS ORDERED: CHLORHEXIDINE 15 ML UDC ONE (05:33)
[2020-08-30 08:11] VITALS: BP 109/76
[2020-08-30] MEDS ORDERED: EPINEPHRINE 1 MG/ML, 1ML ONE (10:49)
[2020-08-30] MEDS ORDERED: BUPIVACAINE/PF 0.5% ONE (10:49)
[2020-08-30] MEDS ORDERED: PROPOFOL 10 MG/ML, 20ML ONE (12:21)
[2020-08-30] MEDS ORDERED: MIDAZOLAM 1 MG/ML, 2ML ONE (12:21)
[2020-08-30] MEDS ORDERED: ROCURONIUM 10MG/ML,5ML ONE (12:21)
[2020-08-30] MEDS ORDERED: FENTANYL PF 250 MCG/5ML ONE (12:22)
[2020-08-30] MEDS ORDERED: ONDANSETRON 2MG/ML, 2ML ONE (12:24)
[2020-08-30] MEDS ORDERED: LIDOCAINE-MPF 2% ,5ML ONE (12:24)
[2020-08-30] MEDS ORDERED: CEFAZOLIN 1,000 MG ONE ×2 (12:24)
[2020-08-30] MEDS ORDERED: DEXAMETHASONE 4 MG/ML, 1ML ONE ×2 (12:24)
[2020-08-30] MEDS ORDERED: DIAZEPAM 5 MG/ML, 2ML IVPush PRN (12:30)
[2020-08-30] MEDS ORDERED: OXYcodone 5 MG/5 ML ORAL.SOL UDC PO PRN (12:30)
[2020-08-30] MEDS ORDERED: PROMETHAZINE 25 MG/ML, 1ML IVPush PRN (12:30)
[2020-08-30] MEDS ORDERED: MEPERIDINE/PF 25MG/0.5ML IVPush PRN (12:30)
[2020-08-30] MEDS ORDERED: ONDANSETRON 2MG/ML, 2ML IVPush PRN (12:30)
[2020-08-30] MEDS ORDERED: GLYCOPYRROLATE 0.2MG/1ML, 5ML ONE (13:08)
[2020-08-30] MEDS ORDERED: SUGAMMADEX 200 MG/2 ML IVPush ONE (13:08)
[2020-08-30] MEDS ORDERED: OXYcodone 5 MG/5 ML ORAL.SOL UDC ONE (13:33)
[2020-08-30] MEDS ORDERED: HYDROmorphone 1 MG/ML, 1ML INJ ONE ×2 (13:33→14:41)
[2020-08-30] MEDS ORDERED: FENTANYL PF 100 MCG/2ML ONE ×2 (13:33→14:01)
[2020-08-30] MEDS: FENTANYL PF 100 MCG/2ML IV PRN ×4 (13:34→14:15)
[2020-08-30] MEDS: HYDROmorphone 1 MG/ML, 1ML INJ IVPush PRN ×4 (13:57→14:48)
[2020-08-30] MEDS ORDERED: ENOXAPARIN 40 MG/0.4 ML SQ SCH (16:00)
[2020-08-30] MEDS ORDERED: ACETAMINOPHEN 325 MG TABLET PO PRN (16:00)
[2020-08-30] MEDS ORDERED: DIPHENHYDRAMINE 50 MG/ML, 1ML IV PRN (16:00)
[2020-08-30] MEDS ORDERED: ACETAMINOPHEN 650 MG SUPP PR PRN (16:00)
[2020-08-30] MEDS ORDERED: KETOROLAC 30 MG/1 ML IV PRN (16:00)
[2020-08-30] MEDS ORDERED: DIPHENHYDRAMINE 25 MG CAPSULE PO PRN (16:00)
[2020-08-30] MEDS ORDERED: HYDROmorphone 2 MG/ML, 1ML IVPush PRN (16:00)
[2020-08-30] MEDS: OXYcodone/APAP 5/325MG TABLET PO PRN ×2 (17:38→21:42)
[2020-08-30 19:10] VITALS: BP 110/70
[2020-08-31 00:49] VITALS: BP 110/72
[2020-08-31 09:24] VITALS: BP 111/73
[2020-08-31] MEDS: OXYcodone/APAP 5/325MG TABLET PO PRN (09:52)
[2020-08-31] MEDS ORDERED: OXYC1TAB14 PO (11:42)
[2020-09-02] MEDS ORDERED: IBUPROFEN 600 MG TABLET PO PRN (16:00)
== END 2020-08-31 13:10 | disposition home or self-care (01) ==
LOC: ED 21:20 → EDIP 23:48 → UNDOADMIN 23:48 → OUT 23:48 → 3N 23:52 → EDIP 23:52 → UNDODISIN 08-31 13:10 → OUT 08-31 13:10
PROVIDERS: ATTEND Emergency Medicine
DX: K81.2 Acute cholecystitis with chronic cholecystitis (principal); Z20.822 Contact with and (suspected) exposure to COVID-19; Z79.1 Long term (current) use of non-steroidal anti-inflammatories (NSAID); Z79.899 Other long term (current) drug therapy
CPT/HCPCS: 36415; 47562; 80053; 81001; 83690; 84703; 85025; 87086; 87635; 88304; 96361; 96374; 99285; J0171; J0690; J1100; J1170; J2250; J2405; J2704; J3010; J7030; Q0163; G0378